=== PATIENT | female | born 1970 | race Caucasian/White ===

== ENCOUNTER 2021-09-06 08:23 | Day surgery (SDC) | payer MEDICAID ==
[~2021-09-06] VITALS: Ht 162.6 cm; Wt 54.4 kg
[2021-09-06] MEDS ORDERED: MEPERIDINE 100 MG INJ. 100 MG/ML VIAL ONE (09:20)
[2021-09-06] MEDS: MIDAZOLAM HCL 5 MG/5 ML VIAL ONE ×2 (09:42→09:45)
[2021-09-06] MEDS ORDERED: DIPHENHYDRAMINE INJ 50 MG/ML VIAL ONE (09:45)
[2021-09-06 14:43] VITALS: BP_SYST 107
== END 2021-09-06 10:58 | disposition home or self-care (01) ==
LOC: SDS 08:23 → SMU 08:23 → SDS 10:58
PROVIDERS: ATTEND Internal Medicine Gastroenterology
DX: R10.9 Unspecified abdominal pain (principal); K74.60 Unspecified cirrhosis of liver; K29.50 Unspecified chronic gastritis without bleeding; I85.00 Esophageal varices without bleeding; Z87.891 Personal history of nicotine dependence; Z79.4 Long term (current) use of insulin; Z79.82 Long term (current) use of aspirin; Z79.899 Other long term (current) drug therapy; Z20.822 Contact with and (suspected) exposure to COVID-19
CPT/HCPCS: 36415; 43239; 82962; 87426; 88305; 88312; 88313; 99152; G0378; J1200; J2175; J2250